=== PATIENT | male | born 1935 | race Caucasian/White ===

== ENCOUNTER → 2018-08-01 | Outpatient (CLI) | payer OTHER ==
[~2018-08-01] MED LIST: ALLOPURINOL 10100 M1 PO; CALCIUM; CARVEDILOL12.5 MG PO; CARVEDILOL3.125 MG PO; CEFTIN500 MG PO; CLORAZEPATE DI7.5 M3 PO; COUMADIN 5 MG TA5 M1 PO; COUMADIN7.5 MG PO; FLOMAX PO; GLUCOPHAGE500 MG PO; GLUCOSAMINE &1 EACH PO; IMDUR 30 MG TAB30 MG PO; KEFLEX500 MG PO; LIPITOR20 MG PO; LISINOPRIL2.5 MG PO; LISINOPRIL5 MG PO; MEDROLDOSEPACK PO; OMEGA-31000 MG PO; RESTASIS1 EACH OPHTHALMIC; SORINE80 MG PO; TIKOSYN.125 PO
[2018-08-01 15:33] LABS: ABSOLUTE BASOPHILS 0.1 thou/uL (0.0-0.2); ABSOLUTE EOSINOPHILS 0.3 thou/uL (0.0-0.7); ABSOLUTE LYMPHOCYTES 1.5 thou/uL (0.8-5.3); ABSOLUTE MONOCYTES 0.8 thou/uL (0.0-1.2); ABSOLUTE NEUTROPHILS 5.1 thou/uL (1.6-8.1); BASOPHILS 1.2 %; EOSINOPHILS 3.8 %; HEMATOCRIT 36.2 % (42.0-52.0); HEMOGLOBIN 12.3 gm/dL (14.0-18.0); LYMPHOCYTES 19.1 %; MCH 32.7 pg (26.0-34.0); MCHC 33.9 g/dL (28.0-37.0); MCV 96.5 fL (80.0-100.0); MONOCYTES 10.1 %; MPV 6.6 fl. (7.2-11.1); NUCLEATED RBCS 0 /100WBC; PLATELET COUNT* 220 thou/uL (150-400); POLYS 65.8 %; RBC 3.75 mil/uL (4.50-6.00); RDW-CV 14.3 % (10.5-14.5); WBC 7.8 thou/uL (4.0-11.0)
[2018-08-01 15:50] LABS: ALBUMIN 3.1 g/dL (3.4-5.0); CALCIUM 8.2 mg/dL (8.5-10.1); CREATININE 2.4 mg/dL (0.6-1.3); POTASSIUM 4.5 mmol/L (3.5-5.1); TOTAL BILIRUBIN 1.1 mg/dL (<0.1-1.0); TOTAL PROTEIN 6.7 g/dL (6.4-8.2)
== END ==
LOC: M.LAB 15:14
PROVIDERS: Internal Medicine
DX: R04.2 Hemoptysis (principal); M47.814 Spondylosis without myelopathy or radiculopathy, thoracic region; Z88.8 Allergy status to other drugs, medicaments and biological substances; Z95.0 Presence of cardiac pacemaker

== ENCOUNTER → 2018-10-18 | Outpatient (CLI) | payer OTHER | LOC: M.CT 10-17 15:30 → M.LAB 10-17 15:30 → M.CT 13:33 | DX: D71 Functional disorders of polymorphonuclear neutrophils (principal); R91.1 Solitary pulmonary nodule; I25.10 Atherosclerotic heart disease of native coronary artery without angina pectoris; E11.9 Type 2 diabetes mellitus without complications; N28.9 Disorder of kidney and ureter, unspecified; I50.22 Chronic systolic (congestive) heart failure ==

== ENCOUNTER 2019-10-28 16:32 | Emergency (ER) | payer OTHER ==
[~2019-10-28] VITALS: Ht 177.8 cm; Wt 76.2 kg
[2019-10-28 17:58] LABS: INR 3.5; PROTIME 34.7 Seconds (9.20-11.50)
[2019-10-28] MEDS ORDERED: KEFLEX500 M1 PO (18:22)
[2019-10-28 18:43] VITALS: BP 132/70
== END 2019-10-28 18:43 | disposition home or self-care (01) ==
LOC: M.ERS 16:32
PROVIDERS: Emergency Medicine Emergency Medical Services
DX: S01.21XA Laceration without foreign body of nose, initial encounter (principal); S80.212A Abrasion, left knee, initial encounter; I50.9 Heart failure, unspecified; I48.91 Unspecified atrial fibrillation; E11.22 Type 2 diabetes mellitus with diabetic chronic kidney disease; E78.00 Pure hypercholesterolemia, unspecified; N18.4 Chronic kidney disease, stage 4 (severe); M10.9 Gout, unspecified; Z85.828 Personal history of other malignant neoplasm of skin; Z88.8 Allergy status to other drugs, medicaments and biological substances; W01.0XXA Fall on same level from slipping, tripping and stumbling without subsequent striking against object, initial encounter; Y93.89 Activity, other specified; Y92.89 Other specified places as the place of occurrence of the external cause; Y99.8 Other external cause status

== ENCOUNTER → 2019-12-19 | Outpatient (CLI) | payer OTHER ==
[~2019-12-19] MED LIST changes: +KEFLEX500 M1 PO
== END ==
LOC: M.RAD 14:17
PROVIDERS: ATTEND Internal Medicine
DX: J98.4 Other disorders of lung (principal)